=== PATIENT | female | born 1990 | race Caucasian/White ===

== ENCOUNTER 2017-02-02 11:21 | Emergency (ER) | payer OTHER ==
[2017-02-02 11:29] VITALS: BP 117/77
--- NOTE | 2017-02-02 12:15 | RAD ---
INDICATION: Right fifth finger injury. TECHNIQUE: 3 views of the right fifth finger were obtained. FINDINGS: There is diffuse soft tissue swelling present within the fifth finger. The finger is slightly flexed at the distal interphalangeal joint. There appears to be a small bony spur arising from the dorsal base of the distal phalanx. No acute fracture is seen. IMPRESSION: SOFT TISSUE SWELLING, NO ACUTE FRACTURE IS SEEN.
--- NOTE | 2017-02-02 12:40 | ED ---
Upper Extremity Pain - HPI Summary HPI Summary: Patient presents with right little finger injury during a rugby game. She does not recall how she injured it. She notes to 2/10 pain in the distal tip without radiation of pain. Denies numbness, tingling or temperature changes. There is ecchymosis over the DIP joint with only slight flexion seen. There does not appear to be a ligament injury and she is able to flex and extend the finger. Denies hand pain or other injuries. - History of Current Complaint Chief Complaint: UCUpperExtremity Stated Complaint: FINGER INJURY Time Seen by Provider: 02/02/17 12:06 Hx Obtained From: Patient Hx Last Menstrual Period: 01/19/17 Mechanism Of Injury: Blunt Trauma Onset/Duration: Started Days Ago Timing: Constant Severity Initially: Moderate Severity Currently: Moderate Character: Aching Aggravating Factor(s): Flexion, Extension, Internal/External Rotation Alleviating Factor(s): Rest, Ice Associated Signs & Symptoms: Positive: Swelling, Bruising Related History: Dominant Hand Right - Risk Factors Non-Orthopedic Risk Factor: Negative DVT Risk Factors: Negative Septic Arthritis Risk Factor: Negative Compartment Syndrome Risk Factors: Pain - Allergies/Home Medications Allergies/Adverse Reactions: Allergies Allergy/AdvReac Type Severity Reaction Status Date / Time No Known Allergies Allergy Verified 02/02/17 11:30 Home Medications: Home Medications NK [No Home Medications Reported] 02/02/17 [History Confirmed 02/02/17] PMH/Surg Hx/FS Hx/Imm Hx Previously Healthy: Yes - Immunization History Hx Pertussis Vaccination: No Immunizations Up to Date: Unable to Obtain/Confirm Infectious Disease History: No Infectious Disease History: Denies: Traveled Outside the [place] in Last 30 Days - Social History Occupation: Employed Full-time Lives: With Family Alcohol Use: None Hx Substance Use: No Substance Use Type: Reports: None Hx Tobacco Use: No Smoking Status (MU): Never Smoked Tobacco Review of Systems Constitutional: Negative Eyes: Negative Cardiovascular: Negative Respiratory: Negative Positive: no symptoms reported, see HPI Positive: Arthralgia Positive: Other - ecchymosis over the distal joint of the right little finger Neurological: Negative All Other Systems Reviewed And Are Negative: Yes Physical Exam Triage Information Reviewed: Yes Vital Signs On Initial Exam: Initial Vitals Temp Pulse Resp BP Pulse Ox 98.7 F 78 16 117/77 99 02/02/17 11:25 02/02/17 11:25 02/02/17 11:25 02/02/17 11:25 02/02/17 11:25 Vital Signs Reviewed: Yes Appearance: Positive: Well-Appearing, Well-Nourished Skin: Positive: Warm, Skin Color Reflects Adequate Perfusion, Other - ecchymosis over the distal right finger tip with mild flexion noted Eyes: Positive: EOMI, MARIA ELENA Neck: Positive: Supple, No Lymphadenopathy Respiratory/Lung Sounds: Positive: Clear to Auscultation, Breath Sounds Present Cardiovascular: Positive: RRR, Pulses are Symmetrical in both Upper and Lower Extremities Musculoskeletal: Positive: Strength/ROM Intact Neurological: Positive: Sensory/Motor Intact, Alert, Oriented to Person Place, Time, Speech Normal Psychiatric: Positive: Normal, Affect/Mood Appropriate Diagnostics - Vital Signs Vital Signs Temp Pulse Resp BP Pulse Ox 02/02/17 11:25 98.7 F 78 16 117/77 99 - Laboratory Lab Statement: Any lab studies that have been ordered have been reviewed, and results considered in the medical decision making process. Course/Dx - Course Course Of Treatment: FINDINGS: There is diffuse soft tissue swelling present within the fifth finger. The finger is slightly flexed at the distal interphalangeal joint. There appears to be a small bony spur arising from the dorsal base of the distal phalanx. No acute fracture is seen. Patient is encouraged to follow up with Dr. Cifuentes if distal fingertip remains in flexion. It is difficult to assess d/t swelling, but seems to be intact without ligamentous injury. - Diagnoses Differential Diagnosis/HQI/PQRI: Positive: Contusion, Fracture (Closed) Provider Diagnoses: Jammed finger (interphalangeal joint) Discharge - Discharge Plan Condition: Stable Disposition: HOME Patient Education Materials: Jammed Finger (ED) Referrals: Jose Cifuentes MD [Medical Doctor] - Additional Instructions: Keep splint on for comfort As discussed, if you begin to develop any deformity in the distal fingertip, please follow up with ORTHO and keep the splint placed 24 hours per day WITHOUT removing it or bending it. I have given you an ortho referral. [facility]
== END 2017-02-02 12:40 | disposition home or self-care (01) ==
LOC: UCEAST 11:21
DX: S69.91XA Unspecified injury of right wrist, hand and finger(s), initial encounter (principal); X58.XXXA Exposure to other specified factors, initial encounter; Y93.63 Activity, rugby; Y92.9 Unspecified place or not applicable; Y99.9 Unspecified external cause status
CPT/HCPCS: 73140; 99201; G0463